=== PATIENT | male | born 1965 | race Caucasian/White ===

== ENCOUNTER → 2017-05-10 12:33 | Outpatient (CLI) | payer OTHER, SELFPAY ==
--- NOTE | 2017-05-10 12:37 | RAD_ITS ---
STUDY: X-RAY CHEST REASON FOR EXAM: Male, 51 years old. Hemoptysis this morning. History of dry throat. TECHNIQUE: PA and lateral views of the chest. COMPARISON: None. FINDINGS: The lungs are mildly hyperexpanded. There is no focal mass or infiltrate. There is no demonstrated pleural abnormality. Normal size heart. Normal mediastinum and tylor. Normal visualized pulmonary arteries. Normal visualized aortic arch and descending thoracic aorta. There are mild degenerative changes of the visualized thoracic spine. Normal visualized ribs, clavicles, and shoulders. There is no demonstrated abnormality of the visualized soft tissue structures of the upper abdomen. RAD/Chest PA and Lateral IMPRESSION: No acute cardiopulmonary disease. Electronically Signed: Kb Gong DO at 16:50 EDT Tel [phone], Service support ,
== END ==
PROVIDERS: Family Provider Internal Medicine; Visit Provider Nurse Practitioner Gerontology
DX: R04.2 Hemoptysis (principal)
CPT/HCPCS: 71046

== ENCOUNTER 2021-04-26 07:20 | Emergency (ER) | payer OTHER, SELFPAY ==
[2021-04-26 07:21] VITALS: BP 139/80; PULSE 87; RESP 16; TEMP 36; O2SAT 100; BMI 25.8
--- NOTE | 2021-04-26 07:40 | CT_ITS ---
EXAM: CT ABDOMEN AND PELVIS WITHOUT INTRAVENOUS CONTRAST CLINICAL INDICATION: Pain TECHNIQUE: Helically acquired images were obtained of the abdomen and pelvis without intravenous contrast. This CT exam was performed using one or more of the following dose reduction techniques: automated exposure control, adjustment of the mA and/or kV according to patient size, and/or use of iterative reconstruction technique. This report was created using [employer] report generation technology. COMPARISON: None. FINDINGS: LOWER THORAX: Unremarkable. Lung bases are clear. No cardiomegaly. No significant pericardial effusion. ABDOMEN: LIVER: Unremarkable. Homogeneous. GALLBLADDER AND BILE DUCTS: Unremarkable. No calcified gallstones. No gallbladder distention or wall edema. No intra- or extrahepatic biliary ductal dilation. PANCREAS: Unremarkable. No focal cystic mass. SPLEEN: Unremarkable. Normal size without focal cystic or solid mass. ADRENALS: Unremarkable. No nodules. KIDNEYS AND URETERS: 3 mm right UVJ calculus with mild right hydronephrosis. Bilateral renal calculi measuring up to 2.8 mm on the right side and 6.4 mm on the left side. Normal renal size and position. STOMACH AND BOWEL: Unremarkable. No stomach or bowel distention. No focal inflammatory change. PELVIS: APPENDIX: No evidence of acute appendicitis. BLADDER: Unremarkable. REPRODUCTIVE: Unremarkable as visualized. No mass. ABDOMEN and PELVIS: INTRAPERITONEAL SPACE: Unremarkable. No ascites or other fluid collection. No free air. BONES/JOINTS: Degenerative changes of the lumbar spine. No suspicious lytic or blastic abnormality. SOFT TISSUES: Unremarkable. No discrete abdominal or pelvic wall hernia. VASCULATURE: Unremarkable. Abdominal aorta is non-dilated. LYMPH NODES: Unremarkable. No enlarged lymph nodes. CT/Abdomen/Pelvis without Cont IMPRESSION: 1. 3 mm right UVJ calculus with mild right hydronephrosis. 2. Bilateral nephrolithiasis. Electronically Signed: Toño Palacio MD (Brooks) at 8:14 EST Reading Location ID and State: [facility] / [place] , Service support ,
--- NOTE | 2021-04-26 07:41 | EX.ED.DYSGE1 ---
HPI History of Present Illness Chief Complaint: Flank Pain Informant: patient Narrative Narrative: Patient presents with right sharp flank pain. It started about 1230 this morning. When it was bad it was radiating down to the right groin. Right now it is not that I had. However it seems to wax and wane frequently. When the pain was bad he vomited on 2 separate episodes. No blood. He felt fine before this. No recent fevers chills nausea vomiting or change in bowel habits. He has been eating and drinking normally. No abdominal surgeries. He is overall healthy. Nothing consistently made his symptoms better or worse. PFSH PFSH Medical History no medical history Home Medications naproxen 500 mg PO BID #14 tab 04/26/21 [Rx Last Taken Unknown] ondansetron 4 mg PO Q8H PRN #10 tab 04/26/21 [Rx Last Taken Unknown] oxycodone-acetaminophen [Percocet] 1 tab PO Q6H PRN 3 Days #12 tab 04/26/21 [Rx Last Taken Unknown] tamsulosin [Flomax] 0.4 mg PO DAILY #7 cap 04/26/21 [Rx Last Taken Unknown] Allergy/AdvReac Type Severity Reaction Status Date / Time No Known Allergies Allergy Verified 04/26/21 07:22 Family History no significant family his Surgical History no surgical history Social History Smoking Status: Never smoker ROS ROS ED Constitutional Constitutional ED: Denies chills or fever(s) ENT ENT ED: Denies sore throat Cardiovascular Cardiovascular: Denies chest pain or palpitations Respiratory/Chest Respiratory/Chest: Denies cough or dyspnea Gastrointestinal Gastrointestinal: Reports abdominal pain, nausea, vomiting and other Details: See history of resident illness. ; Denies constipation, diarrhea or melena Genitourinary Genitourinary ED: Denies hematuria Musculoskeletal Musculoskeletal: Reports back pain Integumentary Denies rash Neurologic Neurologic: Denies headache(s) Endocrine Endocrinology: Denies polydipsia or polyuria Allergic/Immunologic Allergic/Immunologic ED: Denies mouth swelling or urticaria EXAM Physical Exam Const Vital Signs: 04/26/21 07:21 Temperature 96.8 F L Temperature Source Temporal Pulse Rate 87 Respiratory Rate 16 Blood Pressure 139/80 H Blood Pressure Mean 99 Pulse Ox 100 Oxygen Delivery Method Room Air Positive well nourished and well developed General Appearance ED: well developed and NAD HEENT Reports moist mucous membranes Eyes General Eye ED: Negative for pale conjunctiva or scleral icterus Neck no JVD Chest Wall inspection of chest normal Resp normal respiratory effort and clear to auscultation bilaterally Cardio regular rate and regular rhythm GI normal to inspection, nondistended, normoactive bowel sounds, non-tender and non-distended Auscultation: normoactive bowel sounds Palpation: soft; Negative for guarding or rebound tenderness present Back/Spine Back/Spine Narrative: Mild right CVA tenderness. No pain with light palpation. No rashes or skin changes. General Back: CVA tenderness Extremity normal to inspection Extremity Narrative: Distal pulses are normal. General Extremety ED: Negative for edema or tenderness General Extremity: Negative for edema Neuro Sensorium / Orientation: alert Psych mental status grossly normal Skin no rashes or lesions noted and no wounds MDM MDM MDM Narrative Medical decision making narrative: Patient has a minimal elevation of white count which is a nonspecific response and may be stress demargination. Electrolytes show minimal elevation of glucose and creatinine. He was hydrated with fluids here. This can be rechecked. Urine shows no sign of infection. His scan shows 3 mm right stone. It is at the UVJ and has mild hydro-. Statistically, this should pass. He will be given meds. We discussed reasons to return and follow-up with urology as well as straining and saving the stone. Lab Data Attestation: I reviewed the patient's lab results. Labs: Laboratory Results - last 24 hr 04/26/21 04/26/21 04/26/21 07:30 07:30 08:35 WBC 11.9 H RBC 4.50 L Hgb 14.0 Hct 38.7 L MCV 86.0 MCH 31.1 MCHC 36.2 H RDW Std Deviation 40.4 RDW Coeff of [place]ree[place] 13.0 Plt Count 263 MPV 9.7 Immature Gran % (Auto) 0.400 Neut % (Auto) 90.1 H Lymph % (Auto) 4.7 L Towns % (Auto) 4.4 Eos % (Auto) 0.1 Baso % (Auto) 0.3 Absolute Neuts (auto) 10.8 H Absolute Lymphs (auto) 0.56 L Nucleated RBC % 0 Sodium 138 Potassium 4.2 Chloride 107 Carbon Dioxide 28.0 Anion Gap 3 L BUN 22 H Creatinine 1.35 H Estim Creat Clear Calc 64.59 Est GFR (MDRD) Af Amer 71 Est GFR (MDRD) Non-Af 58 L BUN/Creatinine Ratio 16.3 Glucose 149 H Calcium 9.6 Urine Color Yellow Urine Clarity Clear Urine pH 6.0 Ur Specific [place] 1.015 Urine Protein 15 H Urine Glucose (UA) Normal Urine Ketones Negative Urine Occult Blood 25 H Urine Nitrite Negative Urine Bilirubin Negative Urine Urobilinogen Normal Ur Leukocyte Esterase Negative Urine RBC 0-5 SEEN Urine WBC 0 SEEN Ur Squamous Epith Cells 0 SEEN Urine Bacteria 0 SEEN Urine Mucus 0 SEEN Radiography Diagnostic Testing: Clinical Impression(s) from Imaging Studies Abdomen/Pelvis CT 04/26/21 07:40 IMPRESSION: 1. 3 mm right UVJ calculus with mild right hydronephrosis. 2. Bilateral nephrolithiasis. Electronically Signed: Toño Palacio MD (Bro[place]) at 8:14 EST Reading Location ID and State: [facility] / [place] , Service support , Discharge Plan Triage Chief Complaint: Flank Pain ED Provider: José Miguel Sargent Dx/Rx/DC Orders Clinical Impression: Renal calculus, right Instructions: ED Kidney Stone w/ Colic Prescriptions: New oxycodone-acetaminophen [Percocet] 5-325 mg tablet 1 tab PO Q6H PRN (Reason: pain) 3 Days Qty: 12 RF: 0 ondansetron 4 mg tablet,disintegrating 4 mg PO Q8H PRN (Reason: nausea and vomiting) Qty: 10 RF: 0 naproxen 500 MG tablet 500 mg PO BID Qty: 14 RF: 0 tamsulosin [Flomax] 0.4 mg capsule 0.4 mg PO DAILY Qty: 7 RF: 0 Primary Care Provider: Jossie Cornejo Referrals: Kadeem Paul MD [STAFF PHYSICIAN] - 3-5 Days Jossie Cornejo DO [Primary Care Provider] - Disposition Disposition: Home, Self Care
[2021-04-26] MEDS: Ondansetron 4 MG/2 ML Vial IV (07:47)
[2021-04-26 07:50] LABS: Absolute Lymphocyte Count 0.56 X10^3/uL (0.83-4.51); Absolute Neutrophil Count 10.8 X10^3/uL (2.0-7.7); Basophil# 0.04 X10^3/uL; Basophil% 0.3 % (0-1); Eosinophil# 0.01 X10^3/uL; Eosinophils% 0.1 % (0-5); Hematocrit 38.7 % (40-54); Lymphocyte # 0.56 X10^3/ul (0.83-4.51); Lymphocyte % 4.7 % (19-41); Mean Platelet Vol. 9.7 fl (6.2-12.0); Monocyte# 0.52 X10^3/uL; Monocyte% 4.4 % (0-10); NRBC Flagged by Analyzer 0 % (0-5); Neutrophil # 10.76 X10^3/uL (2.7-7.7); Neutrophil % 90.1 % (47-70); POSITIVE COUNT YES; POSITIVE DIFFERENTIAL YES; Platelet Count 263 K/mm3 (150-450); RBC Distribution Width SD 40.4 fl (35.1-43.9); White Blood Count 11.9 K/mm3 (4.4-11.0)
[2021-04-26] MEDS: Morphine 4 MG/ML Syringe IV (07:50)
[2021-04-26] MEDS: 0.9% Normal Saline 1,000 ML 1000 ML IV (07:52)
[2021-04-26] MEDS: Ketorolac 15 MG/ML Vial IV (07:52)
[2021-04-26 08:00] LABS: Anion Gap 3 (5-15); BUN 22 mg/dL (7-18); BUN/Creat Ratio 16.3 RATIO (10-20); Calcium,Total 9.6 mg/dL (8.5-10.1); Chloride 107 mmol/L (98-107); Creatinine, Serum 1.35 mg/dL (0.70-1.30); EST Glomerular Filtration Rate 58 mL/min (>60); Est Glom Filt Rate - Afr Amer 71 mL/min (>60); Estimated Creatinine Clearance 64.59 ml/min; Glucose 149 mg/dL (74-106); Potassium 4.2 mmol/L (3.5-5.1); Sodium Level 138 mmol/L (136-145)
[2021-04-26 08:31] LABS: Mean Corpuscular Hgb 31.1 pg (27.0-32.0)
[2021-04-26 08:32] LABS: Mean Corp Hgb Conc 36.2 g/dL (32-36)
[2021-04-26 08:34] LABS: Differential Indicated SCAN CRITERIA MET
[2021-04-26 08:46] LABS: Bacteria 0 SEEN /hpf (None Seen); Mucous, Urine 0 SEEN /hpf (<or=2+); Squamous Epithelial Cells - UA 0 SEEN /hpf (0-5); White Blood Cells 0 SEEN /hpf (0-5)
[2021-04-26 08:52] LABS: Color, Urine Yellow (Yellow); Glucose, Dipstick Normal (Normal); Ketone-Dipstick Negative (Negative); Leukocyte Esterase-Dipstick Negative /ul (Negative); Nitrite-Dipstick Negative (Negative); Occult Blood-Urine 25 /ul (Negative); Protein-Dipstick 15 mg/dl (Negative); Specific Gravity, Urine 1.015 (1.002-1.030); Urine Bilirubin Dipstick Negative (Negative); Urine Clarity Clear (Clear); Urine Urobilinogen Normal (Normal)
[2021-04-26 08:59] LABS: Red Blood Cells-Urine 0-5 SEEN /hpf (0-5)
== END 2021-04-26 09:39 | disposition home or self-care (01) ==
PROVIDERS: Emergency Provider Emergency Medicine; PCP Internal Medicine; Visit Provider Emergency Medicine
DX: N20.0 Calculus of kidney (principal)
CPT/HCPCS: 74176; 80048; 81001; 85025; 96361; 96374; 96375; 99283; J7030; A4216; J2405

== ENCOUNTER 2023-04-29 10:52 | Emergency (ER) | payer OTHER, SELFPAY ==
[2023-04-29 10:53] VITALS: BP 168/81; PULSE 101; RESP 16; TEMP 36.3; O2SAT 100; BMI 26.3
--- NOTE | 2023-04-29 11:03 | EKG12_ITS ---
Test Reason : ABD PAIN Blood Pressure : / mmHG Vent. Rate : 081 BPM Atrial Rate : 081 BPM P-R Int : 150 ms QRS Dur : 094 ms QT Int : 372 ms P-R-T Axes : 051 045 027 degrees QTc Int : 432 ms Normal sinus rhythm Normal ECG Confirmed by Daniel Billings ([id number]), news copy editor PAYTON MISHRA ([id number]) on 04/30/2023 10:37:13 AM Referred By: Confirmed By:Daniel Billings
--- NOTE | 2023-04-29 11:07 | EX.ED.DYSGE1 ---
HPI <CARMELINA Ventura - Last Filed: 04/29/23 12:35> History of Present Illness Chief Complaint: Abd Pain Narrative Narrative: 57-year-old male with PMH of kidney stones states he had 5 days of pain in his right side just under the rib area. He noticed it when rolling onto his left side in bed or taking a deep breath. Over the last day or so he also feels the pain in his right shoulder. He has no chest pain, shortness of breath, or upper respiratory symptoms. No abdominal pain, vomiting, diarrhea or urinary symptoms. He has had a kidney stone once but this does not feel similar. No surgical history. <Dr. Bernardino Reyes DO - Last Filed: 04/29/23 17:33> Narrative Narrative: 57-year-old male with PMH of kidney stones states he had 5 days of pain in his right side just under the rib area. He noticed it when rolling onto his left side in bed or taking a deep breath. Over the last day or so he also feels the pain in his right shoulder. He has no chest pain, shortness of breath, or upper respiratory symptoms. No abdominal pain, vomiting, diarrhea or urinary symptoms. He has had a kidney stone once but this does not feel similar. No surgical history. The patient denies recent surgery in the last 4 weeks or immobilization in the last 3 days, denies previous diagnosis of DVT or PE, hemoptysis, unilateral leg swelling or malignancy with treatment the last 6 months or palliative. No estrogen use noted. PFSH <CARMELINA Ventura - Last Filed: 04/29/23 12:35> PFSH Medical History no medical history Home Medications naproxen 500 mg tablet 500 mg PO BID #14 tabs 04/26/21 [Rx Last Taken Unknown] ondansetron 4 mg disintegrating tablet 4 mg PO Q8H PRN nausea and vomiting #10 tabs 04/26/21 [Rx Last Taken Unknown] oxycodone-acetaminophen 5 mg-325 mg tablet (Percocet) 1 tab PO Q6H PRN pain 3 days #12 tabs 04/26/21 [Rx Last Taken Unknown] tamsulosin 0.4 mg capsule (Flomax) 0.4 mg PO DAILY #7 caps 04/26/21 [Rx Last Taken Unknown] Allergy/AdvReac Type Severity Reaction Status Date / Time No Known Allergies Allergy Verified 04/29/23 10:54 Social History Smoking Status: Former smoker ROS <CARMELINA Ventura - Last Filed: 04/29/23 12:35> ROS ED ROS Narrative Constitutional: Negative for fever, chills, malaise. CVS: Negative for chest pain, syncope. Respiratory: Negative for shortness of breath, cough. GI: Negative for abdominal pain, nausea, vomiting, diarrhea, constipation, melena, hematochezia. : Negative for dysuria, hematuria or frequency. <Dr. Bernardino Reyes DO - Last Filed: 04/29/23 17:33> ROS ED ROS Narrative Constitutional: Negative for fever, chills, malaise. CVS: Negative for chest pain, syncope. Respiratory: Negative for shortness of breath, cough. +right lower rib pain GI: Negative for abdominal pain, nausea, vomiting, diarrhea, constipation, melena, hematochezia. : Negative for dysuria, hematuria or frequency. EXAM <CARMELINA Ventura - Last Filed: 04/29/23 12:35> Physical Exam Narrative Exam Narrative: CONST: Patient sitting in no acute distress. EYES: Normal inspection. NECK: Normal inspection. RESP: No respiratory distress, CTAB. CVS: Regular rate and rhythm, no murmur, no gallop. ABD: Soft and nontender, no guarding or rebound, nondistended, no hepatosplenomegaly. Back: Normal inspection, no CVA tenderness. SKIN: Color normal, no rash, warm, dry, intact. EXTREMITIES: Normal appearance, no pedal edema. NEURO: Oriented x4. PSYCH: Normal affect. Const Vital Signs: 04/29/23 10:53 04/29/23 11:19 04/29/23 12:30 Temperature 97.4 F L 98.1 F 98.1 F Temperature Source Temporal Oral Pulse Rate 101 H 79 Respiratory Rate 16 16 Blood Pressure 168/81 H 122/79 H Blood Pressure Mean 110 93 Pulse Ox 100 99 Oxygen Delivery Method Room Air <Dr. Bernardino Reyes DO - Last Filed: 04/29/23 17:33> Physical Exam Narrative Exam Narrative: CONST: Patient sitting in no acute distress. EYES: Normal inspection. NECK: Normal inspection. RESP: No respiratory distress, CTAB. CVS: Regular rate and rhythm, no murmur, no gallop. ABD: Soft and nontender, no guarding or rebound, nondistended, no hepatosplenomegaly. Back: Normal inspection, no CVA tenderness. SKIN: Color normal, no rash, warm, dry, intact. EXTREMITIES: Normal appearance, no pedal edema. No calf tenderness or leg swelling noted. NEURO: Oriented x4. PSYCH: Normal affect. Const Vital Signs: 04/29/23 10:53 04/29/23 11:19 04/29/23 12:30 Temperature 97.4 F L 98.1 F 98.1 F Temperature Source Temporal Oral Pulse Rate 101 H 79 Respiratory Rate 16 16 Blood Pressure 168/81 H 122/79 H Blood Pressure Mean 110 93 Pulse Ox 100 99 Oxygen Delivery Method Room Air MDM <CARMELINA Ventura - Last Filed: 04/29/23 12:35> [facility] MDM Narrative Medical decision making narrative: History gathered from: Patient and spouse Differential: muscle strain, PE, pneumonia, pneumothorax, intra-abdominal process less likely Patient has 5 days of pain in his right lateral rib area that hurts with rolling over in bed or taking deep. This was incorrectly stated as RLQ abdominal pain in triage but he does not have abdominal pain. He appears well and nontoxic. BP 168/81, HR 101, otherwise normal vital signs. Has a normal cardiopulmonary exam. No reproducible tenderness over his chest or ribs is noted. No abdominal pain. He is negative Lang sign no tenderness over McBurney's point. CBC, CMP, lipase are normal. EKG is sinus rhythm with no ischemic changes. He does not have chest pain/shortness of breath so troponin is not indicated. D-dimer negative. CXR shows no acute process. His vital signs normalized without intervention. At this time the most likely diagnosis is a muscle strain and he should take [id number] analgesia. He was discharged in stable condition. Lab Data Attestation: I reviewed the patient's lab results. Labs: Laboratory Results - last 24 hr 04/29/23 04/29/23 11:18 11:30 WBC 7.9 RBC 4.75 Hgb 14.4 Hct 40.9 MCV 86.1 MCH 30.3 MCHC 35.2 RDW Std Deviation 39.6 RDW Coeff of [place]ree[place] 12.7 Plt Count 320 MPV 9.0 Immature Gran % (Auto) 0.500 Neut % (Auto) 54.8 Lymph % (Auto) 28.5 [place] % (Auto) 11.1 H Eos % (Auto) 3.8 Baso % (Auto) 1.3 H Absolute Neuts (auto) 4.4 Absolute Lymphs (auto) 2.26 Nucleated RBC % 0 D-Dimer Quant (PE/DVT) 0.28 Sodium 140 Potassium 4.2 Chloride 109 H Carbon Dioxide 28.0 Anion Gap 3 L BUN 15 Creatinine 1.06 Estim Creat Clear Calc 80.35 Est GFR (MDRD) Af Amer 93 Est GFR (MDRD) Non-Af 77 BUN/Creatinine Ratio 14.2 Glucose 101 Calcium 9.4 Total Bilirubin 1.00 AST 31 ALT 46 Alkaline Phosphatase 59 Total Protein 7.5 Albumin 3.8 Globulin 3.7 Albumin/Globulin Ratio 1.0 Lipase 50 Urine Color Yellow Urine Clarity Clear Urine pH 7.0 Ur Specific [place] 1.010 Urine Protein Negative Urine Glucose (UA) Normal Urine Ketones 5 H Urine Occult Blood Negative Urine Nitrite Negative Urine Bilirubin Negative Urine Urobilinogen Normal Ur Leukocyte Esterase Negative Urine RBC 0 SEEN Urine WBC 0 SEEN Ur Squamous Epith Cells 0 SEEN Urine Bacteria 0 SEEN Urine Mucus 0 SEEN Radiography Diagnostic Testing: Clinical Impression(s) from Imaging Studies Chest X-Ray 04/29/23 11:48 IMPRESSION: No acute thoracic pathology. Electronically Signed: Alin Curran MD at 12:11 EST Reading Location ID and State: [facility] [place] Tel , Service support , ED attending interpretation of 2-view chest x-ray shows normal heart size, no acute infiltrate, edema, or effusion. EKG Initial EKG: Attestation: I personally reviewed and interpreted this EKG as follows: Interpretation: Sinus Rhythm and No Acute Injury Pattern Comments: Normal sinus rhythm 81 bpm Normal intervals, no ischemic changes <Dr. Bernardino Reyes, DO - Last Filed: 04/29/23 17:33> [facility] MDM Narrative Medical decision making narrative: History gathered from: Patient and spouse Differential: muscle strain, PE, pneumonia, pneumothorax, intra-abdominal process less likely Patient has 5 days of pain in his right lateral rib area that hurts with rolling over in bed or taking deep. This was incorrectly stated as RLQ abdominal pain in triage but he does not have abdominal pain. He appears well and nontoxic. BP 168/81, HR 101, otherwise normal vital signs. Has a normal cardiopulmonary exam. No reproducible tenderness over his chest or ribs is noted. No abdominal pain. He is negative Lang sign no tenderness over McBurney's point. CBC, CMP, lipase are normal. EKG is sinus rhythm with no ischemic changes. He does not have chest pain/shortness of breath so troponin is not indicated. D-dimer negative. CXR shows no acute process. His vital signs normalized without intervention. At this time the most likely diagnosis is a muscle strain and he should take [id number] analgesia. He was discharged in stable condition. ED attending note: I evaluated the patient in conjunction with the RAFAEL. I agree with his/her statements and above findings. I have personally performed a face to face assessment of the patient and have reviewed the RAFAEL Note. I performed a substantive portion of the visit including all aspects of the following. I personally saw the patient performed chart review, physical exam, reviewed labs, imaging (if obtained), and formulated a treatment and management plan. This note was generated with [employer] dictation software. It may contain incorrect words, spelling, and punctuation that were not noted in review of the chart prior to signing. Lab Data Labs: Laboratory Results - last 24 hr 04/29/23 04/29/23 11:18 11:30 WBC 7.9 RBC 4.75 Hgb 14.4 Hct 40.9 MCV 86.1 MCH 30.3 MCHC 35.2 RDW Std Deviation 39.6 RDW Coeff of [place]ree[place] 12.7 Plt Count 320 MPV 9.0 Immature Gran % (Auto) 0.500 Neut % (Auto) 54.8 Lymph % (Auto) 28.5 Parker % (Auto) 11.1 H Eos % (Auto) 3.8 Baso % (Auto) 1.3 H Absolute Neuts (auto) 4.4 Absolute Lymphs (auto) 2.26 Nucleated RBC % 0 D-Dimer Quant (PE/DVT) 0.28 Sodium 140 Potassium 4.2 Chloride 109 H Carbon Dioxide 28.0 Anion Gap 3 L BUN 15 Creatinine 1.06 Estim Creat Clear Calc 80.35 Est GFR (MDRD) Af Amer 93 Est GFR (MDRD) Non-Af 77 BUN/Creatinine Ratio 14.2 Glucose 101 Calcium 9.4 Total Bilirubin 1.00 AST 31 ALT 46 Alkaline Phosphatase 59 Total Protein 7.5 Albumin 3.8 Globulin 3.7 Albumin/Globulin Ratio 1.0 Lipase 50 Urine Color Yellow Urine Clarity Clear Urine pH 7.0 Ur Specific [place] 1.010 Urine Protein Negative Urine Glucose (UA) Normal Urine Ketones 5 H Urine Occult Blood Negative Urine Nitrite Negative Urine Bilirubin Negative Urine Urobilinogen Normal Ur Leukocyte Esterase Negative Urine RBC 0 SEEN Urine WBC 0 SEEN Ur Squamous Epith Cells 0 SEEN Urine Bacteria 0 SEEN Urine Mucus 0 SEEN Radiography Diagnostic Testing: Clinical Impression(s) from Imaging Studies Chest X-Ray 04/29/23 11:48 IMPRESSION: No acute thoracic pathology. Electronically Signed: Alin Curran MD at 12:11 EST Reading Location ID and State: [facility] / [place] Tel , Service support , Discharge Plan Triage Chief Complaint: Abd Pain ED Midlevel Provider: Jaqueline Luevano ED Provider: Bernardino Reyes Dx/Rx/DC Orders Clinical Impression: Rib pain on right side Instructions: ED Pain, Acute, Uncertain Cause Prescriptions: No Action oxycodone-acetaminophen [Percocet] 5-325 mg tablet 1 tab PO Q6H PRN (Reason: pain) 3 Days Qty: 12 0RF ondansetron 4 mg tablet,disintegrating 4 mg PO Q8H PRN (Reason: nausea and vomiting) Qty: 10 0RF naproxen 500 MG tablet 500 mg PO BID Qty: 14 0RF tamsulosin [Flomax] 0.4 mg capsule 0.4 mg PO DAILY Qty: 7 0RF Primary Care Provider: Jossie Cornejo Referrals: Jossie Cornejo DO [Primary Care Provider] - Activity Restrictions/Additional Instructions: Your testing today looks normal. Try Tylenol or Motrin as needed. If symptoms significantly change or worsen return to the ER. Disposition Disposition: Home, Self Care Discharge Date/Time: 04/29/23 12:31
[2023-04-29 11:19] VITALS: TEMP 36.7
--- NOTE | 2023-04-29 11:19 | ED.RN ---
NO OLD EKG
[2023-04-29 11:32] LABS: Absolute Lymphocyte Count 2.26 X10^3/uL (0.83-4.51); Absolute Neutrophil Count 4.4 X10^3/uL (2.0-7.7); Basophil% 1.3 % (0-1); Eosinophils% 3.8 % (0-5); Hematocrit 40.9 % (40-54); Hemoglobin 14.4 g/dL (13.0-16.5); Lymphocyte # 2.26 X10^3/ul (0.83-4.51); Lymphocyte % 28.5 % (19-41); Mean Corp Hgb Conc 35.2 g/dL (32-36); Mean Corpuscular Hgb 30.3 pg (27.0-32.0); Mean Corpuscular Volume 86.1 fL (80-94); Monocyte# 0.88 X10^3/uL; Monocyte% 11.1 % (0-10); NRBC Flagged by Analyzer 0 % (0-5); Neutrophil # 4.36 X10^3/uL (2.7-7.7); Neutrophil % 54.8 % (47-70); Platelet Count 320 K/mm3 (150-450); RBC Distribution Width CV 12.7 % (11.6-14.6); RBC Distribution Width SD 39.6 fl (35.1-43.9); Red Blood Count 4.75 M/mm3 (4.6-6.2); White Blood Count 7.9 K/mm3 (4.4-11.0)
--- OUTSIDE RECORDS SUMMARY | 2023-04-29 11:37 | XMS RPT_ITS | CCD ---
Author Name Unknown Address [address] [place] [address] Organization [facility] Care Team Providers Care [employer] Crm Developer Name Role Phone Jossie Cornejo Unavailable Freedom Kevin Unavailable GravRachel calero Unavailable Unavailable SlarbMajo Unavailable Unavailable Unavailable Unavailable Medications Completed/Discontinued Medications Medication Drug Class(es) Dates Sig (Normalized) Sig (Original) amoxicillin 875 mg / clavulanate 125 mg oral tablet (3 sources) Penicillin-class Antibacterial Start: 06-27-2012 End: 01-15-2017 take 1 tablet by mouth twice daily Augmentin 875-125 MG Oral Tablet 1 Tablet bid for 0 days Quantity: 20 {Tablet} Refills: 0 Ordered: 15-Jan-2017 Rebecca Griffiths RN Start : 27-Jun-2012 End : 15-Jan-2017 Inactive Apple Cider Vinegar (2 sources) Apple cider Vinegar Active Baby asa (2 sources) Baby asa Active Biotin (2 sources) Biotin Active Daily MVI (2 sources) Daily MVI Active fluticasone propionate 0.05 mg/actuat metered dose nasal spray (3 sources) Corticosteroid Start: 01-26-2011 End: 02-09-2011 FLUTICASONE PROPIONATE, 50MCG/ACT (Nasal Suspension) 1 Suspension each nostril daily for 0 days Quantity: 1 {Suspension} Refills: 0 Ordered: 09-Feb-2011 WILNER Barrera LPN Start : 26-Jan-2011 End : 09-Feb-2011 Inactive Ginko Bilopa 120 mg (2 sources) Ginko Bilopa 120 mg Active Saw palmetto extract (2 sources) Saw [place] Active sulfacetamide sodium 100 mg/ml ophthalmic solution (3 sources) Sulfonamide Antibacterial Start: 11-27-2011 End: 11-27-2011 BLEPH-10, 10% (Ophthalmic Solution) 1 Solution 1-2 ggt in eye every 4 hours while awake for 7 days for 0 days Quantity: 1 {Solution} Refills: 0 Ordered: 27-Nov-2011 Celina Lan DO Start : 27-Nov-2011 End : 27-Nov-2011 Discontinued Vitamin D 10,000 (2 sources) Vitamin D 10,000 Active Zinc (2 sources) Zinc 30 mg Activ e Problems Active Problems Problem Classification Problem Date Documented Date Episodic/Chronic Acute bronchitis (6 sources) Acute bronchitis; Translations: [Acute bronchitis] Resolved: 08-20-2009 06-27-2012 Episodic Administrative/social admission (3 sources) Administrative reason for encounter; Translations: [Other general medical examination for administrative purposes] 08-11-2019 Episodic Past or Other Problems Problem Classification Problem Date Documented Da te Episodic/Chronic Inflammation; infection of eye (except that caused by tuberculosis or sexually transmitteddisease) (3 sources) Serous conjunctivitis; Translations: [Serous conjunctivitis, unspecified laterality] Resolved: 06-27-2012 01-15-2015 Episodic Other upper respiratory disease (3 sources) Pharyngeal dryness; Translations: [Dry throat] Resolved: 04-27-2020 08-11-2019 Episodic Other upper respiratory infections (3 sources) Chronic sinusitis; Translations: [Sinusitis, chronic] Resolved: 01-15-2017 01-15-2017 Chronic Otitis media and related conditions (3 sources) Dysfunction of eustachian tube; Translations: [Eustachian tube dysfunction] Resolved: 06-27-2012 12-01-2014 Episodic Results Test Name Value Interpretation Reference Range Facil ity Vital Signs Date Time Vital Sign Value Performing Clinician Facility 04-27-2020 09:13-0500 BMI (Body Mass Index) 28.79 kg/m2 [facility] Work Phone: 04-27-2020 09:13-0500 Body Temperature 97.5 [degF] [facility] Work Phone: 04-27-2020 09:13-0500 Body weight 85.9 kg [facility] Chantalkav[facility] Work Phone: 04-27-2020 09:94-4965 BP Diastolic 72 mm[Hg] [facility] Work Phone: Encounters Encounter Date Encounter Type Care Provider Facility Start: 04-27-2020 End: 04-27-2020 Office outpatient visit 15 minutes J[facility] Chantal [facility] Start: 04-27-2020 Review Jossiejonathan Cornejo [facility] Start: 08-11-2019 End: 08-11-2019 Office outpatient visit 10 minutes Jossie Chantal [facility] Start: 05-10-2017 End: 05-10-2017 Office outpatient visit 15 minutes Jossiejonathan Cornejo [facility] Start: 01-15-2017 End: 01-15-2017 Initial preventive medicine new patient 40-64yrs [facility] Start: 06-27-2012 End: 06-27-2012 Patient encounter procedure Jossie Chantal [facility] Start: 11-27-2011 End: 11-27-2011 Patient encounter procedure Jossie Ch[facility]al [facility] Start: 02-09-2011 End: 02-09-2011 Patient encounter procedure [facility] Start: 01-26-2011 End: 01-26-2011 Patient encounter procedure J[facility]ie Ch[facility] Start: 10-08-2009 End: 10-08-2009 Patient encounter procedure J[facility]ie Chant[facility] Start: 08-20-2009 End: 08-20-2009 Patient encounter procedure Jossie Chantal [facility] Start: 08-27-2008 End: 08-27-2008 Office outpatient new 45 minutes Jossie Chantal [facility] Start: 09-02-2007 End: 09-02-2007 Patient encounter procedure Jossie Chantal [facility] Start: 08-22-2006 End: 08-22-2006 Patient encounter procedure Jossie Chantal [facility] Start: 08-21-2006 End: 08-21-2006 Historical Summary [facility]on [facility] Procedures Date Procedure Procedure Detail Performing Clinician Start: 05-10-2017 End: 05-10-2017 Chest PA and Lateral Comments: See Note; NOTES: [facility] Imaging Services [address] [place] [address] Chest PA and Lateral MR#: [id number] Acct: [id number] Name: NABIL YEUNG Rep #: [id number] : 1965 M 51 From: Kb Gong DO PCP: Status: REG CLI Study: Chest PA and Lateral Date of Exam: 05/10/17 Exam# [id number] Ordering Dr: Rebecca Cobian STUDY: X-RAY CHEST REASON FOR EXAM: Male, 51 years old. Hemoptysis this morning. History of dry throat. TECHNIQUE: PA and lateral views of the chest. COMPARISON: None. FINDINGS: The lungs are mildly hyperexpanded. There is no focal mass or infiltrate. There is no demonstrated pleural abnormality. Normal size heart. Normal mediastinum and tylor. Normal visualized pulmonary arteries. Normal visualized aortic arch and descending thoracic aorta. There are mild degenerative changes of the visualized thoracic spine. Normal visualized ribs, clavicles, and shoulders. There is no demonstrated abnormality of the visualized soft tissue structures of the upper abdomen. RAD/Chest PA and Lateral IMPRESSION: No acute cardiopulmonary disease. Electronically Signed: Kb Gong DO at 16:50 EDT Tel [phone], Service support , CC: CAUSTIC STRENGTH INSPECTORRohit Cobian Head Cook: Signed Rebecca Cobian Plan of Treatment Date Care Activity Detail Author Start: 04-27-2020 Procedure Education Eprescribed prescriptions (G8553) [facility] Work Phone: Start: 04-27-2020 Provider Instructions for Treatment COVID SCREENING FORM [facility] Work Phone: Start: 04-27-2020 HbA1c (Bld) [Mass fraction] HGB A1C (50648) [facility]; [facility] Work Phone: Start: 04-27-2020 Lipid panel LIPID PANEL (02507) [facility] Work Phone: Start: 04-27-2020 Comprehensive metabolic panel METABOLIC PANEL, COMPREHENSIVE (69268) [facility]; [facility] Work Phone: Start: 04-27-2020 Assay of prostate specific antigen total PSA (PROSTATE SPECIFIC ANTIGEN) (V76.44) [facility] Work Phone: Start: 08-11-2019 Procedure Education Eprescribed prescriptions (G8553) [facility]; [facility] Work Phone: Start: 08-11-2019 Provider Instructions for Treatment I/D Cyst/Abscess [facility] Work Phone: Start: 05-10-2017 Procedure Education Eprescribed prescriptions (G8553) [facility]; [facility] Work Phone: Start: 05-10-2017 Provider Instructions for Treatment Follow up if no improvement or if symptoms worsen [facility]; [facility] Work Phone: Start: 10-08-2009 Assay of prostate specific antigen total PSA (PROSTATE SPECIFIC ANTIGEN) (V76.44) [facility]; [facility] Work Phone: Start: 10-08-2009 Comprehensive metabolic panel METABOLIC PANEL, COMPREHENSIVE (48370) [facility]; [facility] Work Phone: Start: 10-08-2009 Lipid panel LIPID PANEL (38000) [facility] Work Phone: [facility] Work Phone: [facility] Work Phone: [facility] Work Phone: [facility] Work Phone: Immunizations Immunization Date Immunization Notes Care Provider [facility] 08-27-2008 tetanus toxoid, reduced diphtheria toxoid, and acellular pertussis vaccine, adsorbed [facility]al [facility]; [facility] Work Phone: Payers Date Payer Category Payer Policy ID Unknown [facility] Social History Date Type Detail Facility Alcohol Use Alcohol Use [facility] Work Phone: Instructions Name Dates Details Patient Instructions Indication:Non-smoker Start:27-Apr-2020 Instruction Type:Provider Instructions for Treatment How to Access Health Informa tion Online using Patient Portal and 3rd [employer] Apps Indication:Non-smoker Start:27-Apr-2020 Instruction Type:Patient Education How to access health informa tion online Indication:BMI 27.0-27.9,adult Start:11-Aug-2019 Instruction Type:Patient Education How to access health informa tion online - Detail Indication:BMI 27.0-27.9,adult Start:11-Aug-2019 Instruction Type:Patient Education Patient Instructions Indication:BMI 27.0-27.9,adult Start:11-Aug-2019 Instruction Type:Provider Instructions for Treatment How to access health informa tion online Indication:Non-smoker Start:10-May-2017 Instruction Type:Patient Education How to access health informa tion online - Detail Indication:Non-smoker Start:10-May-2017 Instruction Type:Patient Education Patient Instructions Indication:Dry throat Start:10-May-2017 Instruction Type:Provider Instructions for Treatment How to access health informa tion online Indication:Non-smoker Start:15-Jan-2017 Instruction Type:Patient Education How to access health informa tion online - Detail Indication:Non-smoker Start:15-Jan-2017 Instruction Type:Patient Education Patient Instructions Indication:Non-smoker Start:15-Jan-2017 Instruction Type:Provider Instructions for Treatment Patient Instructions Indication:Bronchitis Start:27-Jun-2012 Instruction Type:Provider Instructions for Treatment Patient Instructions Indication:Knee pain Start:27-Nov-2011 Instruction Type:Provider Instructions for Treatment Name Dates Details Patient Instructions Indication:Non-smoker Start:27-Apr-2020 Instruction Type:Provider Instructions for Treatment How to Access Health Informa tion Online using Patient Portal and 3rd [employer] Apps Indication:Non-smoker Start:27-Apr-2020 Instruction Type:Patient Education How to access health informa tion online Indication:BMI 27.0-27.9,adult Start:11-Aug-2019 Instruction Type:Patient Education How to access health informa tion online - Detail Indication:BMI 27.0-27.9,adult Start:11-Aug-2019 Instruction Type:Patient Education Patient Instructions Indication:BMI 27.0-27.9,adult Start:11-Aug-2019 Instruction Type:Provider Instructions for Treatment How to access health informa tion online Indication:Non-smoker Start:10-May-2017 Instruction Type:Patient Education How to access health informa tion online - Detail Indication:Non-smoker Start:10-May-2017 Instruction Type:Patient Education Patient Instructions Indication:Dry throat Start:10-May-2017 Instruction Type:Provider Instructions for Treatment How to access health informa tion online Indication:Non-smoker Start:15-Jan-2017 Instruction Type:Patient Education How to access health informa tion online - Detail Indication:Non-smoker Start:15-Jan-2017 Instruction Type:Patient Education Patient Instructions Indication:Non-smoker Start:15-Jan-2017 Instruction Type:Provider Instructions for Treatment Patient Instructions Indication:Bronchitis Start:27-Jun-2012 Instruction Type:Provider Instructions for Treatment Patient Instructions Indication:Knee pain Start:27-Nov-2011 Instruction Type:Provider Instructions for Treatment Name Dates Details Patient Instructions Indication:Non-smoker Start:27-Apr-2020 Instruction Type:Provider Instructions for Treatment How to Access Health Informa tion Online using Patient Portal and 3rd [employer] Apps Indication:Non-smoker Start:27-Apr-2020 Instruction Type:Patient Education How to access health informa tion online Indication:BMI 27.0-27.9,adult Start:11-Aug-2019 Instruction Type:Patient Education How to access health informa tion online - Detail Indication:BMI 27.0-27.9,adult Start:11-Aug-2019 Instruction Type:Patient Education Patient Instructions Indication:BMI 27.0-27.9,adult Start:11-Aug-2019 Instruction Type:Provider Instructions for Treatment How to access health informa tion online Indication:Non-smoker Start:10-May-2017 Instruction Type:Patient Education How to access health informa tion online - Detail Indication:Non-smoker Start:10-May-2017 Instruction Type:Patient Education Patient Instructions Indication:Dry throat Start:10-May-2017 Instruction Type:Provider Instructions for Treatment How to access health informa tion online Indication:Non-smoker Start:15-Jan-2017 Instruction Type:Patient Education How to access nGAP online - Detail Indication:Non-smoker Start:15-Jan-2017 Instruction Type:Patient Education Patient Instructions Indication:Non-smoker Start:15-Jan-2017 Instruction Type:Provider Instructions for Treatment Patient Instructions Indication:Bronchitis Start:27-Jun-2012 Instruction Type:Provider Instructions for Treatment Patient Instructions Indication:Knee pain Start:27-Nov-2011 Instruction Type:Provider Instructions for Treatment Additional Source Comments FOR RECORDS PERTAINING TO PATIENTS WHO ARE OR HAVE BEEN ENROLLED IN A CHEMICAL DEPENDENCY/SUBSTANCEABUSE PROGRAM, SOME INFORMATION MAY BE OMITTED. This clinical summary was aggregated from multiple sources. Caution should be exercised in using it in the provision of clinical care. This summary normalizes information from multiple sources, and as a consequence, information in this document may materially change the coding, format and clinical context of patient data. In addition, data may be omitted in some cases. CLINICAL DECISIONS SHOULD BE BASED ON THE PRIMARY CLINICAL RECORDS. [facility]. provides no warranty or guarantee of the accuracy or completeness of information in this document.
[2023-04-29 11:38] LABS: Bacteria 0 SEEN /hpf (None Seen); Mucous, Urine 0 SEEN /hpf (<or=2+); Red Blood Cells-Urine 0 SEEN /hpf (0-5); Squamous Epithelial Cells - UA 0 SEEN /hpf (0-5); White Blood Cells 0 SEEN /hpf (0-5)
[2023-04-29 11:43] LABS: AST(SGOT) 31 U/L (15-37); Alanine Aminotransfer ALT/SGPT 46 U/L (16-61); Albumin, Serum 3.8 g/dL (3.2-5.0); Alkaline Phosphatase 59 U/L (45-117); Anion Gap 3 (5-15); BUN 15 mg/dL (7-18); BUN/Creat Ratio 14.2 RATIO (10-20); Calcium,Total 9.4 mg/dL (8.5-10.1); Chloride 109 mmol/L (98-107); Creatinine, Serum 1.06 mg/dL (0.70-1.30); EST Glomerular Filtration Rate 77 mL/min (>60); Est Glom Filt Rate - Afr Amer 93 mL/min (>60); Estimated Creatinine Clearance 80.35 ml/min; Globulin 3.7 g/dL (2.2-4.2); Glucose 101 mg/dL (74-106); Lipase 50 U/L (13-75); Potassium 4.2 mmol/L (3.5-5.1); Protein, Total 7.5 g/dL (6.4-8.2); Sodium Level 140 mmol/L (136-145)
[2023-04-29 11:43] LABS: Color, Urine Yellow (Yellow); Glucose, Dipstick Normal (Normal); Ketone-Dipstick 5 mg/dl (Negative); Leukocyte Esterase-Dipstick Negative /ul (Negative); Nitrite-Dipstick Negative (Negative); Occult Blood-Urine Negative /ul (Negative); Protein-Dipstick Negative (Negative); Urine Bilirubin Dipstick Negative (Negative); Urine Clarity Clear (Clear); Urine Urobilinogen Normal (Normal)
--- NOTE | 2023-04-29 11:48 | RAD_ITS ---
STUDY: X-RAY CHEST REASON FOR EXAM: Male, 57 years old. Pain. TECHNIQUE: Frontal and lateral views of the chest COMPARISON: 05/10/2018 FINDINGS: The lungs are clear. There are no pleural effusions. There is no pneumothorax. The heart is normal in size. The visualized osseous structures are within normal limits. RAD/Chest PA and Lateral IMPRESSION: No acute thoracic pathology. Electronically Signed: Alin Curran MD at 12:11 EST ,
[2023-04-29 11:51] LABS: D-Dimer Quantitative (DVT/PE) 0.28 FEU/ug/m (0.27-0.49)
[2023-04-29 12:30] VITALS: BP 122/79; PULSE 79; RESP 16; TEMP 36.7; O2SAT 99
== END 2023-04-29 12:31 | disposition home or self-care (01) ==
PROVIDERS: Physician Assistant; Emergency Provider Emergency Medicine; PCP Internal Medicine; Visit Provider Emergency Medicine
DX: R07.81 Pleurodynia (principal); Z87.891 Personal history of nicotine dependence; Z87.442 Personal history of urinary calculi
CPT/HCPCS: 71046; 80053; 81001; 83690; 85025; 85379; 93005; 99283; A4216

== ENCOUNTER 2023-10-10 09:45 | Emergency (ER) | payer OTHER, SELFPAY ==
[2023-10-10 09:46] VITALS: BP 145/91; PULSE 83; RESP 16; TEMP 36.6; O2SAT 100; BMI 27.1
--- NOTE | 2023-10-10 09:48 | EX.ED.DYSGE1 ---
HPI History of Present Illness Chief Complaint: Flank Pain PFSH PFSH Home Medications ?Medication ?Instructions ?Recorded ?Last Taken ?Type naproxen 500 mg tablet 500 mg PO BID #14 tabs 04/26/21 Unknown Rx ondansetron 4 mg disintegrating 4 mg PO Q8H PRN nausea and 04/26/21 Unknown Rx tablet vomiting #10 tabs oxycodone-acetaminophen 5 mg-325 1 tab PO Q6H PRN pain 3 days #12 04/26/21 Unknown Rx mg tablet (Percocet) tabs tamsulosin 0.4 mg capsule (Flomax) 0.4 mg PO DAILY #7 caps 04/26/21 Unknown Rx ondansetron 4 mg disintegrating 4 mg PO Q8H PRN PRN Nausea #10 tabs 10/10/23 Unknown Rx tablet oxycodone 5 mg tablet 5 mg PO Q6H PRN pain 3 days #12 10/10/23 Unknown Rx tabs tamsulosin 0.4 mg capsule 0.4 mg PO DAILY #7 CAPSULES 10/10/23 Unknown Rx Allergy/AdvReac Type Severity Reaction Status Date / Time No Known Allergies Allergy Verified 04/29/23 10:54 Social History Smoking Status: Former smoker EXAM Physical Exam Const Vital Signs: 10/10/23 09:46 10/10/23 11:08 10/10/23 11:56 Temperature 97.8 F 97.0 F L Temperature Source Temporal Pulse Rate 83 60 69 Respiratory Rate 16 18 18 Blood Pressure 145/91 H 129/76 H 137/80 H Blood Pressure Mean 109 93 99 Pulse Ox 100 100 100 Oxygen Delivery Method Room Air [facility] [place] Medical decision making narrative: HISTORY OF PRESENT ILLNESS: 58-year-old male presents with left flank pain. Notes he took [place] at 9 AM. He further states he has had 2 days of left-sided flank pain. Concern about a kidney stone. Denies vomiting, chest pain, burning with urination, constipation, diarrhea. REVIEW OF SYSTEMS: Pertinent positives: Flank pain Pertinent negatives: As per HPI PHYSICAL EXAM: Nursing triage notes reviewed, Vital signs reviewed Constitutional: please see mdm HENT: MMM Eyes: Pupils equal round and reactive to light, Extraocular muscles intact Neck: No stridor, no JVD, full neck ROM Lungs: Clear to auscultation, No wheezing or rales. No increased work of breathing, no conversational dyspnea, no accessory muscle use, no nasal flaring. No respiratory distress noted Heart: Regular rate and rhythm, No murmurs, No rubs and No gallops, 2+ distal pulses (radial, femoral, posterior tibial) in all extremities Abdomen: Soft, there is no tenderness, rigidity, rebound or guarding, no obvious peritoneal signs, no palpable pulsatile abdominal masses, no auscultated abdominal bruit : No CVAT Extremities: No edema Neuro: No focal neurological deficits, cranial nerves II through XII intact, 5/5 strength in all extremities. Intact sensation to light touch in all extremities, 2+ reflexes bilateral patella tendons. Normal gait. No ataxia. Skin: No rash or lesions noted MEDICAL DECISION MAKING: Chief Complaint: Flank pain External records reviewed: Reviewed prior ED notes. Reviewed prior imaging studies. Reviewed CT scan from April 2021 which showed a 3 mm right UVJ calculus, hydronephrosis Factors affecting care: Nephrolithiasis Social determinants of health: none History obtained from others: none Consults: none [facility] Narrative: Patient was initially hemodynamically stable, afebrile and nontoxic-appearing. Exam without abdominal tenderness, peritoneal signs or CVAT. I considered the following differential diagnosis: Nephrolithiasis, pyelonephritis, AAA, musculoskeletal inflammatory process ALL IMAGES (IF OBTAINED) HAVE BEEN PERSONALLY REVIEWED AND INTERPRETED BY MYSELF. Urinalysis shows evidence of hematuria and inflammation consistent with kidney stone, no signs of infection CT scan abdomen pelvis shows a 4 mm left nephrolithiasis CBC without leukocytosis, severe anemia, no thrombocytopenia. BMP without significant electrolyte abnormality, there is no sign of metabolic acidosis or endorgan hypoperfusion with normal bicarb and anion gap, there is mild renal insufficiency The synthesis of the patient's history, physical exam, labs images suggest nephrolithiasis. It is proximal however it is of the size that should pass spontaneously. Additionally the patient was comfortable. Pain was well-controlled. He was in no acute distress. There is no signs of urosepsis or significant renal dysfunction to prompt admission. Will encourage oral narcotics, tamsulosin and close urology follow-up. Strict return precautions were discussed. The patient and/or family, caregivers express understanding. The patient and/or family, caregivers agrees with the plan. Shared decision making: I will have a discussion with the patient and or visitors regarding risk/benefits of further testing or admission. They will be made aware of of the risk/benefits inherent in this decision they will be given the opportunity to voice understanding. Total critical care time today provided was at least 0 minutes. This excludes separately billable procedures. Critical care time (if documented) is secondary to the patient having high probability of clinically significant/life threatening deterioration in the patient's condition which required my urgent intervention. Impression: 1. Nephrolithiasis 2. Hydronephrosis 3. Hematuria Dispo: Discharge home This note was generated with [employer] dictation software. It may contain incorrect words, spelling, and punctuation that were not noted in review of the chart prior to signing. Lab Data Labs: Laboratory Results - last 24 hr 10/10/23 10:00 WBC 8.5 RBC 4.38 L Hgb 13.4 Hct 38.6 L MCV 88.1 MCH 30.6 MCHC 34.7 RDW Std Deviation 41.9 RDW Coeff of [place] 13.0 Plt Count 202 MPV 9.7 Sodium 140 Potassium 4.1 Chloride 106 Carbon Dioxide 29.0 Anion Gap 5 BUN 13 Creatinine 1.33 H Estim Creat Clear Calc 61.28 Est GFR (MDRD) Af Amer 71 Est GFR (MDRD) Non-Af 59 L BUN/Creatinine Ratio 9.8 L Glucose 122 H Calcium 9.6 Urine Color Yellow Urine Clarity Clear Urine pH 6.0 Ur Specific [place] 1.020 Urine Protein 15 H Urine Glucose (UA) Normal Urine Ketones Negative Urine Occult Blood 250 H Urine Nitrite Negative Urine Bilirubin Negative Urine Urobilinogen Normal Ur Leukocyte Esterase 25 H Urine RBC 10-25 SEEN Urine WBC 10-25 SEEN Ur Squamous Epith Cells 0 SEEN Urine Bacteria RARE Urine Mucus 1+ Radiography Diagnostic Testing: Clinical Impression(s) from Imaging Studies Abdomen/Pelvis CT 10/10/23 10:04 IMPRESSION: 1. Mild/moderate left hydronephrosis due to 4 mm stone in the proximal left ureter. 2. Small bilateral nonobstructing renal stones. 3. Slightly prominent prostate. Electronically Signed: Dario Fisher MD at 11:00 EDT , Discharge Plan Triage Chief Complaint: Flank Pain ED Provider: Bernardino Reyes Dx/Rx/DC Orders Instructions: ED Kidney Stone with Pain Prescriptions: New oxycodone 5 mg tablet 5 mg PO Q6H PRN (Reason: pain) 3 Days Qty: 12 0RF ondansetron 4 mg tablet,disintegrating 4 mg PO Q8H PRN PRN (Reason: Nausea) Qty: 10 0RF tamsulosin 0.4 mg capsule 0.4 mg PO DAILY Qty: 7 0RF No Action oxycodone-acetaminophen [Percocet] 5-325 mg tablet 1 tab PO Q6H PRN (Reason: pain) 3 Days Qty: 12 0RF ondansetron 4 mg tablet,disintegrating 4 mg PO Q8H PRN (Reason: nausea and vomiting) Qty: 10 0RF naproxen 500 MG tablet 500 mg PO BID Qty: 14 0RF tamsulosin [Flomax] 0.4 mg capsule 0.4 mg PO DAILY Qty: 7 0RF Primary Care Provider: Jossie Cornejo Referrals: Kadeem Paul MD [Med Staff - Active Staff] - Activity Restrictions/Additional Instructions: Thank you for trusting us with your care today! You have been diagnosed with a kidney stone. Was 4 mm and should pass spontaneously on its own without surgical intervention. Please take Tylenol (2 pills, 650 mg), ibuprofen (2 pills, 400 mg) every 6 hours as needed for pain and fever control. Please take oxycodone as needed for further pain control if the above regimen does not control your pain. Please take tamsulosin as prescribed for next 7 days to improve passage of your kidney stone. Please take Zofran as needed for nausea vomiting control. Please return to the emergency department if your symptoms change or worsen. Specifically develop fever, vomiting, severe pain Please follow with your primary care physician and/or Urology (Dr. Paul) for further outpatient evaluation and management. Print Language: Danish Disposition Disposition: Home, Self Care Discharge Date/Time: 10/10/23 11:58
--- NOTE | 2023-10-10 10:04 | CT_ITS ---
INDICATION: left flank pain, hx of kidney stone EXAMINATION: CT ABDOMEN AND PELVIS WITHOUT CONTRAST - CT Abdomen And Pelvis W/O Contrast Injection TECHNIQUE: Helically acquired images were obtained of the abdomen and pelvis without oral or IV contrast. The protocol utilizes one or more of the following dose reduction techniques: automated exposure control, adjustment of mA and/or kV according to patient size,and/or use of iterative reconstruction technique. IV Contrast dosage and agent: None. Oral contrast: None. RADIATION DOSAGE (If Supplied By Facility): CTDIvol = ( 7.31 ) mGy, DLP = ( 377.83 ) mGycm COMPARISON: Prior study dated: 04/26/2021 FINDINGS: LOWER CHEST: Minimal atelectatic changes or scarring in the left lower lobe. No cardiomegaly or pericardial effusion. LIVER: Homogeneous. No focal mass. GALLBLADDER AND BILIARY TREE: No calcified gallstones. No gallbladder distension or wall edema. No intra- or extrahepatic biliary ductal dilation. PANCREAS: No focal cystic or solid mass. SPLEEN: Normal size without focal cystic or solid mass. ADRENAL GLANDS: No nodules. KIDNEYS AND URETERS: 5 mm nonobstructing stone in the right kidney. Mild to moderate left hydronephrosis due to 4 mm stone in the proximal left ureter. Punctate nonobstructing stone in the left kidney. PERITONEUM: No ascites or free air. No other fluid collection. BOWEL: No evidence of acute appendicitis. No stomach or bowel distension. No focal inflammatory change. LYMPH NODES: No enlarged mesenteric or retroperitoneal lymph nodes. VESSELS: Aorta is non-dilated. URINARY BLADDER: Unremarkable. REPRODUCTIVE ORGANS: Prominent prostate. Correlation with PSA level is recommended. ABDOMINAL WALL: No discrete abdominal or pelvic wall hernia. BONES: No lytic or blastic abnormality. CT/Abdomen/Pelvis without Cont IMPRESSION: 1. Mild/moderate left hydronephrosis due to 4 mm stone in the proximal left ureter. 2. Small bilateral nonobstructing renal stones. 3. Slightly prominent prostate. Electronically Signed: Dario Fisher MD at 11:00 EDT ,
[2023-10-10 10:13] LABS: Hematocrit 38.6 % (40-54); Hemoglobin 13.4 g/dL (13.0-16.5); Mean Corp Hgb Conc 34.7 g/dL (32-36); Mean Corpuscular Hgb 30.6 pg (27.0-32.0); Mean Corpuscular Volume 88.1 fL (80-94); Mean Platelet Vol. 9.7 fl (6.2-12.0); Platelet Count 202 K/mm3 (150-450); RBC Distribution Width SD 41.9 fl (35.1-43.9); Red Blood Count 4.38 M/mm3 (4.6-6.2); White Blood Count 8.5 K/mm3 (4.4-11.0)
[2023-10-10] MEDS: Ondansetron 4 MG/2 ML Vial IV (10:18)
[2023-10-10] MEDS: Morphine 4 MG/ML Syringe IV (10:18)
[2023-10-10] MEDS: Ketorolac 15 MG/ML Vial IV (10:18)
[2023-10-10] MEDS: 0.9% Normal Saline (1000mL) 1,000 ML 1000 ML IV (10:18)
[2023-10-10 10:22] LABS: Squamous Epithelial Cells - UA 0 SEEN /hpf (0-5)
[2023-10-10 10:24] LABS: Color, Urine Yellow (Yellow); Glucose, Dipstick Normal (Normal); Ketone-Dipstick Negative (Negative); Leukocyte Esterase-Dipstick 25 /ul (Negative); Nitrite-Dipstick Negative (Negative); Occult Blood-Urine 250 /ul (Negative); Protein-Dipstick 15 mg/dl (Negative); Urine Bilirubin Dipstick Negative (Negative); Urine Clarity Clear (Clear); Urine Urobilinogen Normal (Normal)
[2023-10-10 10:29] LABS: Anion Gap 5 (5-15); BUN 13 mg/dL (7-18); BUN/Creat Ratio 9.8 RATIO (10-20); Calcium,Total 9.6 mg/dL (8.5-10.1); Chloride 106 mmol/L (98-107); Creatinine, Serum 1.33 mg/dL (0.70-1.30); EST Glomerular Filtration Rate 59 mL/min (>60); Est Glom Filt Rate - Afr Amer 71 mL/min (>60); Estimated Creatinine Clearance 61.28 ml/min; Glucose 122 mg/dL (74-106); Potassium 4.1 mmol/L (3.5-5.1); Sodium Level 140 mmol/L (136-145)
[2023-10-10 10:58] LABS: Bacteria RARE /hpf (None Seen); Mucous, Urine 1+ /hpf (<or=2+); Red Blood Cells-Urine 10-25 SEEN /hpf (0-5); White Blood Cells 10-25 SEEN /hpf (0-5)
[2023-10-10 11:08] VITALS: BP 129/76; PULSE 60; RESP 18; O2SAT 100
[2023-10-10 11:56] VITALS: BP 137/80; PULSE 69; RESP 18; TEMP 36.1; O2SAT 100
== END 2023-10-10 11:58 | disposition home or self-care (01) ==
PROVIDERS: Emergency Provider Emergency Medicine; PCP Internal Medicine; Visit Provider Emergency Medicine
DX: N13.2 Hydronephrosis with renal and ureteral calculous obstruction (principal); R31.9 Hematuria, unspecified; Z87.891 Personal history of nicotine dependence
CPT/HCPCS: 74176; 80048; 81001; 85027; 96361; 96374; 96375; 99284; J7030; A4216; J2405

== ENCOUNTER → 2023-10-15 | Outpatient (CLI) | payer OTHER, SELFPAY ==
--- NOTE | 2023-10-15 13:40 | RAD_ITS ---
STUDY: X-RAY - ABDOMEN/PELVIS REASON FOR EXAM: Male, 58 years old. KIDNEY STONE TECHNIQUE: Single AP view of the abdomen / pelvis. COMPARISON: None. FINDINGS: Normal visualized lung bases. There is an unremarkable bowel gas pattern. Increased stool in the colon. The visualized liver, spleen and kidneys are grossly normal in size and morphology. Normal soft tissue structures. Normal visualized osseous structures. RAD/Abdomen Single View IMPRESSION: Increased stool Electronically Signed: Nicko Infante MD at 21:15 EDT ,
--- NOTE | 2023-10-15 14:57 | CT_ITS ---
STUDY: CT ABDOMEN AND PELVIS WITHOUT CONTRAST REASON FOR EXAM: Male, 58 years old. Calculus of kidney RADIATION DOSAGE (If Supplied By Facility): CTDIvol = ( 9.51 ) mGy, DLP = ( 455.53 ) mGycm TECHNIQUE: Transaxial images were obtained from the dome of the diaphragm to the symphysis pubis without oral contrast, and without intravenous contrast. Sagittal and coronal images were reconstructed. Individualized dose optimization techniques were used for this CT. The protocol utilizes one or more of the following dose reduction techniques: automated exposure control, adjustment of mA and/or kV according to patient size,and/or use of iterative reconstruction technique. COMPARISON: CT abdomen and pelvis October 10, 2023 FINDINGS: The visualized lung bases are unremarkable. The visualized portions of the heart are within normal limits. Normal liver. Normal gallbladder and extrahepatic biliary system. Normal spleen. Normal pancreas. Normal bilateral adrenal glands. Punctate nonobstructing nephrolith on the right. Moderate left hydronephrosis and punctate nonobstructing nephroliths. 3 millimeters mid left ureterolith. Normal visualized stomach. Normal small intestine. Normal colon. The appendix is visualized and appears normal. Normal abdominal aorta. Normal inferior vena cava. Normal retroperitoneum. Normal urinary bladder. Normal abdominal wall. Mild dextroconvex scoliosis. CT/Abdomen/Pelvis without Cont IMPRESSION: Moderate left hydronephrosis. 3 mm mid ureterolith on the left. Bilateral punctate nonobstructing nephroliths. Electronically Signed: Nicko Infante MD at 21:26 EDT ,
== END | disposition home or self-care (01) ==
PROVIDERS: PCP Internal Medicine; Referring Provider Urology; Visit Provider Urology
DX: N20.2 Calculus of kidney with calculus of ureter (principal)
CPT/HCPCS: 74018; 74176